=== PATIENT | male | born 1980 | race Caucasian/White ===

== ENCOUNTER 2021-04-10 20:02 | Emergency (ER) | payer OTHER, MEDICAID, SELFPAY ==
[2021-04-10 20:16] VITALS: BP 126/63; PULSE 79; RESP 14; TEMP 36.6; O2SAT 99; BMI 22.9
== END 2021-04-10 22:30 | disposition left against medical advice (07) ==
PROVIDERS: Emergency Provider Emergency Medicine
CPT/HCPCS: 99281

== ENCOUNTER 2025-08-05 12:57 | Emergency (ER) | payer MEDICAID, OTHER, SELFPAY ==
[2025-08-05 13:13] VITALS: BP 134/81; PULSE 84; RESP 15; TEMP 36.9; O2SAT 99; BMI 18.8
--- NOTE | 2025-08-05 13:18 | DI.RAD.S_ITS ---
PROCEDURE: XR SHOULDER LT MIN 2V INDICATIONS: pain TECHNIQUE: 3 views of the shoulder were acquired. COMPARISON: None. FINDINGS: Bones: No fractures or dislocations. No suspicious bony lesions. Visualized ribs appear intact. Soft tissues: No suspicious soft tissue calcifications. IMPRESSION: No acute bony abnormality. Dictated by: Tim Mancuso M.D. on 08/05/2025 at 14:58 Approved by: Tim Mancuso M.D. on 08/05/2025 at 14:58
--- NOTE | 2025-08-05 16:00 | ED_ITS ---
HPI - Extremity Injury (Upper) General Chief Complaint: Extremity Injury, Upper Stated Complaint: L shoulder to elbow pn, x2 months, arm numbness Time Seen by Provider: 08/05/25 15:57 Source: patient Mode of arrival: Ambulatory History of Present Illness HPI narrative: 45-year-old male patient with a history of asthma and tobacco smoking who complains of pain radiating from the left shoulder to the elbow for 2 months with accompanying numbness. Symptoms have been worsening over the last few weeks. No new injury. Related Data Previous Rx's ?Medication ?Instructions ?Recorded albuterol sulfate 90 mcg/actuation 2 puff INH Q4HP PRN #1 ea 11/02/17 aerosol inhaler (Ventolin HFA) gabapentin 300 mg capsule 300 mg PO TID #20 caps 08/05 Allergies Allergy/AdvReac Type Severity Reaction Status Date / Time No Known Drug Allergies Allergy Verified 08/05/25 13:13 Review of Systems Review of Systems ROS Unobtainable: All systems reviewed & are unremarkable except as noted in HPI and below Musculoskeletal Musculoskeletal: Reports as per HPI Patient History Social History Smoking Status: Current every day smoker Smoking Status: Current every day smoker tobacco type: cigars alcohol intake frequency: holidays/special occasions only Exam Narrative Exam Narrative: General: Alert and conversant. No distress. Appears well nourished and well hydrated Craniofacial: No evidence of trauma. Nontender and no swelling. Eyes: PERRLA EOMI conjunctiva clear Neck: No tenderness or adenopathy. No meningismus. No JVD Lungs: Clear to auscultation with good air movement. No wheezing, rales or rhonchi. No respiratory distress Cardiac: Regular rate and rhythm with no appreciable murmur or gallop Musculoskeletal: Tenderness of the left lateral neck which produces symptoms in the arm, on palpation. Exam of the left upper extremity reveals no deformity, bony tenderness. Passive range of motion intact strength is good throughout. There is no obvious tendon or muscle tenderness. Distal neurovascular intact. Neuro: Alert and oriented. Cranial nerves, motor, sensory and cerebellar all grossly intact. No focal deficit Skin: Warm and normal color. No rashes Psychological: Normal affect and interaction. No evidence of delusion or psychosis. Normal mood. Initial Vital Signs Initial Vital Signs: Vital Signs Temperature 98.4 F 08/05/25 13:13 Pulse Rate 84 08/05/25 13:13 Respiratory Rate 15 08/05/25 13:13 Blood Pressure 134/81 08/05/25 13:13 Pulse Oximetry 99 08/05/25 13:13 Oxygen Delivery Method Room Air 08/05/25 13:13 Course Orders Ordered: ED Orders 08/05/25 13:18 XR shoulder LT 2+ views Stat Vital Signs Vital signs: Vital Signs - 8 hr 08/05/25 13:13 Temperature 98.4 F Pulse Rate 84 Respiratory Rate 15 Blood Pressure 134/81 Pulse Oximetry 99 Oxygen Delivery Method Room Air MDM - Extremity Injury (Upper) Imaging Data Extremity x-ray #1: My Impression: Left shoulder x-ray reveals no fracture or malalignment. Essentially normal. [facility] Narrative Medical decision making narrative: Patient's symptoms are consistent with cervical radiculopathy in the left upper extremity with no emergent or red flag findings. He has good strength but has mostly pain and some numbness in his worse with palpation and manipulation of the neck. Minimal neck pain. Did not believe he needs further imaging or workup in the ER. He was given instructions on radiculopathy and a prescription for gabapentin. He is to follow up with primary care. May eventually need referral to physical therapy or possibly orthopedic or neurosurgical neck surgeon. Return to the ER if worse. Discharge Plan Departure Patient Disposition: Home Clinical Impression: Cervical radiculopathy, Left shoulder pain Instructions: Cervical Radiculopathy Activity Restrictions/Additional Instructions: Assessment: 1. Radiating left upper extremity pain consistent with cervical radiculopathy. Another possibility is musculoskeletal pain from ligament or muscle strain Plan: Modified use of the left upper extremity to avoid exacerbation. Cold or warm packs. Ibuprofen and gabapentin. Prescription for gabapentin. Establish primary care and follow up for further assessment and possible referral to physical therapy and possibly also to orthopedics or neurosurgery for evaluation of possible radiculopathy. May eventually need MRI of the neck Prescriptions: New gabapentin 300 mg capsule 300 mg PO TID Qty: 20 0RF No Action albuterol sulfate [Ventolin HFA] 90 MCG/PUFF HFA aerosol inhaler 2 puff INH Q4HP PRNQty: 1 0RF Stand Alone Forms: Patient Portal/API
== END 2025-08-05 16:45 | disposition home or self-care (01) ==
PROVIDERS: Emergency Provider Emergency Medicine
DX: M54.12 Radiculopathy, cervical region (principal); M25.512 Pain in left shoulder
CPT/HCPCS: 73030; 99281; 99283